=== PATIENT | male | born 1970 | race Hispanic/Latino ===

== ENCOUNTER 2017-01-13 13:34 | Inpatient (IN) | payer OTHER ==
[~2017-01-13] VITALS: Ht 167.6 cm; Wt 76.5 kg
[2017-01-13 15:20] LABS: MEAN CORPUSCULAR HEMOGLOBIN 30.4 pg (27.0-33.0); MEAN CORPUSCULAR HGB CONC 34.2 g/dl (32.0-36.5); MEAN CORPUSCULAR VOLUME 88.9 fl (80.0-96.0); RED CELL DISTRIBUTION WIDTH 12.8 % (11.5-14.5); WHITE BLOOD COUNT 5.6 K/mm3 (4.0-10.0)
[2017-01-13 15:36] LABS: METHADONE URINE NEGATIVE (NEGATIVE)
[2017-01-13 15:42] LABS: ALBUMIN/GLOBULIN RATIO 1.14 (1.00-1.93); ALKALINE PHOSPHATASE 80 U/L (45-117); ALT/SGPT 33 U/L (12-78); ANION GAP 9 MEQ/L (8-16); AST/SGOT 22 U/L (15-37); BILIRUBIN,DIRECT 0.3 MG/DL (0.0-0.2); BILIRUBIN,TOTAL 1.8 MG/DL (0.2-1.0); BLOOD UREA NITROGEN 10 MG/DL (7-18); CALCIUM LEVEL 8.9 MG/DL (8.5-10.1); CARBON DIOXIDE LEVEL 28 MEQ/L (21-32); CHLORIDE LEVEL 105 MEQ/L (98-107); CREATININE FOR GFR 0.84 MG/DL (0.70-1.30); GLOMERULAR FILTRATION RATE > 60.0 (>60); GLUCOSE, FASTING 87 MG/DL (70-105); POTASSIUM SERUM 3.9 MEQ/L (3.5-5.1); SODIUM LEVEL 142 MEQ/L (136-145); TOTAL PROTEIN 7.5 GM/DL (6.4-8.2)
[2017-01-13] MEDS ORDERED: LORazepam 1 MG TAB PO PRN (16:30)
[2017-01-13] MEDS ORDERED: MOM 30ML SUSPENSION UDC PO PRN (16:30)
[2017-01-13] MEDS ORDERED: MAALOX 30 ML SUSP *UDC PO PRN (16:30)
[2017-01-13] MEDS ORDERED: ACETAMINOPHEN TAB 650MG DOSE (2X325MG) PO PRN (16:30)
[2017-01-13 17:33] VITALS: BP 138/80
[2017-01-13] MEDS: traZODone 50 MG TAB PO PRN (21:17)
[2017-01-13] MEDS: SERTRALINE HCL 50 MG TAB PO SCH (21:17)
[2017-01-14 06:38] VITALS: BP 123/83
[2017-01-14] MEDS: SERTRALINE HCL 50 MG TAB PO SCH (08:48)
[2017-01-14 18:00] VITALS: BP 117/60
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
[2017-01-14] MEDS: traZODone 50 MG TAB PO PRN (21:49)
[2017-01-15 05:54] VITALS: BP 134/77
[2017-01-15 06:44] VITALS: BP 134/77
[2017-01-15] MEDS: SERTRALINE HCL 50 MG TAB PO SCH (09:10)
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
[2017-01-15 18:00] VITALS: BP 121/72
[2017-01-16 06:18] VITALS: BP 131/83
[2017-01-16] MEDS: SERTRALINE HCL 50 MG TAB PO SCH (08:55)
[2017-01-16 18:00] VITALS: BP 130/70
--- NOTE | 2017-01-16 20:29 | IPN ---
DATE: 01/16/2017 CHIEF COMPLAINT: Says feels okay. SUBJECTIVE: Is seen for followup. He is seen in the presence of staff, Kalli. 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 He says that went well, but that they have, in effect, ordered him to tell his about his hospitalization. He says that he plans to let her know, sometime today, possibly, but that he does not plan to tell her where he is, exactly, though says that he has spoken with her, called her. It is quite possible that she will have seen that he is in this hospital based on caller ID. He says that when he told her that even though he was away and that he did not know where he was, she had giggled and not asked him much more. He says that he does not wish her to see him as weak or that he is in a psychiatric unit. Currently suggests does not plan to kill himself when she is on vacation later in the month. Sleep was fair. We had kept him on one-on-one watch since yesterday in the evening and that remains for now, though he suggests that he does not think that it is necessary. I understand Kalli, the nurse, had spoken with [facility], who have pointed out that he has done work that is meticulous, that he has tended not to delegate things that he can, and they plan to ease some of those factors. MENTAL STATUS EXAMINATION: He is neat. He is cooperative, somewhat less guarded, though sits in bed, hunched forward, looking down a fair amount of the time at the floor, his hands clasped in front of him. Mood is okay. Affect is restricted but reactive, in congruent with mood. Appears depressed. Denies any suicidal thoughts or intents. No homicidal ideas or intents. No evidence of any psychosis. His judgment is quite questionable, as is insight. ASSESSMENT: 1. Major depressive disorder, severe, without psychotic features. The possibility of recurrent major depressive disorder also needs to be taken into consideration. 2. Rule out posttraumatic stress disorder (PTSD). The patient remains depressed, quite severely so, minimizes difficulties, guarded in his plans, and all of these factors put him at risk of harming himself. PLAN: I would suggest continuing with the one-on-one observation for now. Cognitive reframing is also attempted. We will look at increasing the sertraline to help address depressed mood, trauma related symptoms as well, probably increase it to 75 mg daily. He is encouraged to let his know about his whereabouts so that she be involved in his care as well. He is hesitant about this and this adds to the risk. I have also said that he consider informing his in our presence. He hopes to be discharged tomorrow. I do not think that he is ready for discharge, given what has been discussed above and over the weekend. He remains at considerable risk of harming himself. He will be seeing Dr. Vargas tomorrow and the rest of the team. VITAL SIGNS: Blood pressure 131/83, pulse 56, temperature 97.6.
[2017-01-16] MEDS: traZODone 50 MG TAB PO PRN (22:29)
[2017-01-17 06:54] VITALS: BP 117/61
--- NOTE | 2017-01-17 08:01 | HPE ---
DATE OF ADMISSION: 01/13/2017 HISTORY OF PRESENT ILLNESS: Please refer to the psychiatric history and evaluation for further details on this admission. This examination and history is intended for medical issues, which may need treatment, followup or consultation on this 46-year-old male. PRIMARY CARE PROVIDER: JAMEL Best. ALLERGIES: NO KNOWN ALLERGIES. 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 Ethyl alcohol (EtOH) weekends. He drinks beer and wine. Smokes none. Recreational drug use none. PAST MEDICAL HISTORY: Negative. PAST SURGICAL HISTORY: Breast lump biopsy negative for cancer. HOME MEDICATIONS: None. FAMILY HISTORY: Noncontributory. LABORATORY STUDIES: WBC 5.6, hemoglobin 14, hematocrit 41.0, platelets 255. Electrolytes normal. Total bilirubin 1.8, direct bilirubin 0.7. Toxicology screen negative. 10-systems review was done, was unremarkable. Patient had no complaints. PHYSICAL EXAMINATION: 46-year-old, cooperative male, in no acute distress. Height 66 inches. Weight 76.2. Body mass index (BMI) 27.1. Blood pressure 130/80. Pulse 52. Respirations 16. Temperature 98. Patient is alert and oriented times three. Pupils equal and reactive to light. Extraocular movements intact. Cornea and sclerae clear. Conjunctivae was normal. No facial asymmetry. Pharynx, tongue and gum is pink and moist. Tongue is midline. Neck is supple, without lymphadenopathy. No thyromegaly. No goiter. Chest clear to auscultation. No wheeze or retraction. Heart is regular. Abdomen benign. Bowel sounds positive. Genitourinary ()/rectal not done. Extremities: No cyanosis, clubbing or edema. Peripheral pulses equal and palpable bilaterally. Skin is warm and dry. Superficial laceration noted on the left wrist, no redness or drainage, slightly scabbed. IMPRESSION/PLAN: 1. Psychiatric: Plan per psychiatry. 2. Monitor laceration for infection. 3. No acute medical issues.
[2017-01-17] MEDS: SERTRALINE HCL 25 MG TABLET PO SCH (10:05)
[2017-01-17 18:00] VITALS: BP 141/61
--- NOTE | 2017-01-17 20:18 | ECGEPIP ---
Stationary ECG Study [facility] Test Date: 2017-01-17 Pat Name: OSIEL SHAH Department: Room: [place] [address] Gender: M Mouse Breeder: KAILA : 1970 Requested By: ROYCE Fang Order Number: [id number] Reading MD: Antoinette Rubin Measurements Intervals Lititz Rate: 55 P: 58 MO: 169 QRS: 27 QRSD: 86 T: 35 QT: 402 QTc: 387 Interpretive Statements SINUS BRADYCARDIA NO PRIOR Electronically Signed On 01-17-2017 20:18:14 EDT by Antoinette Rubin
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
[2017-01-17] MEDS: traZODone 50 MG TAB PO PRN (22:27)
[2017-01-18 06:30] VITALS: BP 125/78
[2017-01-18] MEDS: SERTRALINE HCL 25 MG TABLET PO SCH (09:48)
--- NOTE | 2017-01-18 13:40 | MHIPNPDOC ---
[facility] Progress Note Progress Note DATE OF SERVICE: 01/18/17 INTERVAL HISTORY: Medication Side effects: Denies Behavior: Not violent, not aggressive. Apparently less anxious. Group Attendance: Has attended groups Psychiatric Symptom change: He is still depressed, he admits to have suicidal ideation but with less frequency. Anxious. VITAL SIGNS: See below. NEW TEST RESULTS: See below CURRENT MEDICATIONS: See below. MENTAL STATUS EXAMINATION: General: Alert, cooperative with interview, poor eye contact, dressed in hospital clothes Speech: Normal Thought processes: Organized, coherent Thought content: Negative for auditory or visual hallucinations, negative for homicidal ideation, positive for suicidal ideation. Abstract reasoning, and computation: Good Description of associations: Not loose Description of abnormal or psychotic thoughts: Not present Judgment: Poor Insight: Poor Orientation: Oriented 3 Recent and remote memory: Intact Attention span and concentration: Fair Fund of knowledge: Full Mood: "I'm depressed, I still think about it (suicide), but is less" Affect: Depressed. DIAGNOSES: 1. Major depressive disorder, severe with suicidal ideation. 2. PTSD. ASSESSMENT: Patient is still at high risk for suicide. He will go for long-term treatment in [place]. He states that his suicidal ideation has decreased, but is not a major change. He is still suicidal. MANAGEMENT PLAN: Medications: Will continue on Zoloft and trazodone Psychotherapy: Will encourage him to attend groups Social: Will encourage him to interact more with peers Misc: None Disposition: Will be transferred for long-term treatment tomorrow at [facility] in [place], tomorrow morning. TIME SPENT: 30 minutes. Vital Signs Vital Signs Date Time Temp Pulse Resp B/P (MAP) Pulse Ox O2 Delivery O2 Flow Rate FiO2 01/18/17 06:30 97.9 57 18 125/78 (94) 01/15/17 05:54 Room Air 01/13/17 16:59 99 Current Medications Current Medications Acetaminophen (Tylenol Tab) 650 mg Q6HP PRN PO HEADACHE or DISCOMFORT; Start at 16:30; Stop 02/12/17 at 16:29 Al Hydrox/Mg Hydrox/Simethicone (Mylanta) 30 ml Q4HP PRN PO HEARTBURN/ INDIGESTION; Start 01/13/17 at 16:30; Stop 02/12/17 at 16:29 Home Med (Med Rec Complete!) ASDIRECTED XX ; Start 01/13/17 at 16:30; Stop at 16:31; Status DC Lorazepam (Ativan) 1 mg Q8HP PRN PO ANXIETY/AGITATION; Start 01/13/17 at 16:30; Stop 01/20/17 at 16:29 Magnesium Hydroxide (Milk Of Magnesia) 30 ml DAILYPRN PRN PO CONSTIPATION; Start 01/13/17 at 16:30; Stop 02/12/17 at 16:29 Sertraline HCl (Zoloft) 50 mg DAILY PO Last administered on 01/16/17 08:55; Start 01/13/17 at 09:00; Stop 01/16/17 at 14:45; Status DC Sertraline HCl (Zoloft) 75 mg DAILY PO Last administered on 01/18/17 09:48; Start 01/17/17 at 09:00; Stop 02/16/17 at 08:59 Trazodone HCl (Desyrel) 50 mg QHSP PRN PO INSOMNIA Last administered on 22:27; Start 01/13/17 at 16:30; Stop 02/12/17 at 16:29 Allergies Coded Allergies: No Known Allergies (Unverified , 01/13/17) ROYCE DALE MD January 18, 2017 13:40
[2017-01-18 18:26] VITALS: BP 131/77
[2017-01-18] MEDS: traZODone 50 MG TAB PO PRN (22:47)
[2017-01-19 06:07] VITALS: BP 133/79
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
== END 2017-01-19 06:20 | disposition home or self-care (01) | DRG 885 ==
LOC: M ED 14:39 → M ED INP 16:28 → M PSY 17:27
PROVIDERS: ADMIT Psychiatry & Neurology Psychiatry; ATTEND Psychiatry & Neurology Psychiatry
DX: F32.2 Major depressive disorder, single episode, severe without psychotic features (principal); Z62.810 Personal history of physical and sexual abuse in childhood; F60.3 Borderline personality disorder; Z81.8 Family history of other mental and behavioral disorders; F43.10 Post-traumatic stress disorder, unspecified; Z91.5 Personal history of self-harm

== ENCOUNTER 2017-04-29 16:07 | Inpatient (IN) | payer OTHER ==
[~2017-04-29] VITALS: Ht 170.2 cm; Wt 78.9 kg
[2017-04-29] MEDS ORDERED: ZOLO50TA PO (16:17)
[2017-04-29 17:12] LABS: MEAN CORPUSCULAR HEMOGLOBIN 31.3 pg (27.0-33.0); MEAN CORPUSCULAR HGB CONC 35.2 g/dl (32.0-36.5); MEAN CORPUSCULAR VOLUME 89.1 fl (80.0-96.0); WHITE BLOOD COUNT 7.6 K/mm3 (4.0-10.0)
[2017-04-29 17:42] LABS: ALBUMIN 4.1 GM/DL (3.2-5.2); ALBUMIN/GLOBULIN RATIO 1.28 (1.00-1.93); ALKALINE PHOSPHATASE 96 U/L (45-117); ALT/SGPT 31 U/L (12-78); ANION GAP 12 MEQ/L (8-16); AST/SGOT 25 U/L (15-37); BILIRUBIN,DIRECT 0.2 MG/DL (0.0-0.2); BILIRUBIN,TOTAL 0.9 MG/DL (0.2-1.0); BLOOD UREA NITROGEN 14 MG/DL (7-18); CALCIUM LEVEL 8.5 MG/DL (8.5-10.1); CARBON DIOXIDE LEVEL 23 MEQ/L (21-32); CHLORIDE LEVEL 107 MEQ/L (98-107); CREATININE FOR GFR 1.05 MG/DL (0.70-1.30); GLOMERULAR FILTRATION RATE > 60.0 (>60); GLUCOSE, FASTING 120 MG/DL (70-105); SODIUM LEVEL 142 MEQ/L (136-145); TOTAL PROTEIN 7.3 GM/DL (6.4-8.2)
[2017-04-29 18:18] LABS: METHADONE URINE NEGATIVE (NEGATIVE)
[2017-04-29] MEDS ORDERED: FISH1000 PO (18:58)
[2017-04-29] MEDS ORDERED: PATIENT COMMENT (18:58)
[2017-04-29] MEDS ORDERED: COLA100C5 PO (18:58)
[2017-04-29] MEDS ORDERED: LORazepam 1 MG TAB PO ONE (22:45)
[2017-04-30 00:10] VITALS: BP 142/90
[2017-04-30] MEDS ORDERED: MAALOX 30 ML SUSP *UDC PO PRN (00:15)
[2017-04-30] MEDS ORDERED: ACETAMINOPHEN TAB 650MG DOSE (2X325MG) PO PRN (00:15)
[2017-04-30] MEDS ORDERED: MOM 30ML SUSPENSION UDC PO PRN (00:15)
[2017-04-30 06:39] VITALS: BP 146/86
[2017-04-30 12:00] VITALS: BP 136/82
[2017-04-30 18:00] VITALS: BP 128/98
[2017-04-30] MEDS: traZODone 50 MG TAB PO PRN (21:03)
[2017-05-01 06:52] VITALS: BP 130/88
[2017-05-01] MEDS: SERTRALINE HCL 50 MG TAB PO SCH (13:33)
[2017-05-01 18:00] VITALS: BP 144/87
[2017-05-01] MEDS: traZODone 50 MG TAB PO PRN (21:56)
[2017-05-02 06:29] VITALS: BP 125/72
[2017-05-02] MEDS ORDERED: TRAZ-136 PO (09:08)
[2017-05-02] MEDS ORDERED: SERT-138 PO (09:08)
[2017-05-02] MEDS ORDERED: MIRT1TAB PO (09:08)
[2017-05-02] MEDS: SERTRALINE HCL 50 MG TAB PO SCH (09:19)
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
--- NOTE | 2017-05-02 11:40 | MHIPN ---
DATE: 05/01/2017 CHIEF COMPLAINT: Feels okay. SUBJECTIVE: Seen for followup in the presence of staff. Says feels okay, that he had a good night, moods are good. Says he contacted his to find about the medicines, but that she was unable to tell him, as she was out with friends. He said he will try and contact today, thinks she will be at [employer]. MENTAL STATUS EXAMINATION: He is sitting up in bed. He is neat. He is cooperative, though somewhat superficially so. He is coherent. No agitation. No psychomotor retardation. Affect broad. Denies any thoughts of harming himself or anyone else. No evidence of any psychosis. Cognition grossly intact. His judgment, insight are questionable. ASSESSMENT: Major depressive disorder. PLAN: Continue current care and observations, and since he has been off Zoloft for a couple of days, and we do not know the exact dose that he is on, neither does he, we will prescribe him Zoloft at 50 mg daily, it will adjusted once we find out from his , or from the pharmacy tomorrow, the correct dose. The other medications that he is on, he is thought to be on prazosin as well, will be resumed. He is to encourage to participate in activities on the unit. He tends to minimize his difficulties. VITAL SIGNS: Blood pressure 130/88, pulse 64, temperature 97.8. He will be meeting his assigned psychiatrist and the rest of the treatment team tomorrow. MISTI
--- NOTE | 2017-05-02 13:18 | HPE ---
DATE OF ADMISSION: 04/29/2018 HISTORY OF PRESENT ILLNESS (HPI): Please refer to the psychiatric history and evaluation for further details on this admission. This examination and history is intended for medical issues, which may need treatment, followup or consultation on this 47-year-old male. PRIMARY CARE PROVIDER: JAMEL Best, ALLERGIES: NO KNOWN ALLERGIES. SOCIAL HISTORY: He is a , currently stationed at [employer]. Ethyl alcohol (EtOH): He drinks beer on the weekends, but he states he has had none for a week. He does not smoke cigarettes. Recreational drug use: None. PAST MEDICAL HISTORY: 1. Depression. 2. Hyperlipidemia. PAST SURGICAL HISTORY: Breast lump biopsy negative for cancer. HOME MEDICATIONS: - Colace 100 mg by mouth twice a day - fish oil 1000 mg by mouth daily - sertraline (He does not remember the dosage, that will need to be checked at [facility] when they open on Tuesday.) FAMILY HISTORY: Noncontributory. LABORATORY STUDIES: WBC 7.6, hemoglobin 13.5, hematocrit 38.5, platelets 266. Electrolytes were normal. Toxicology was negative. 10 systems review was done. It was unremarkable. Patient had no complaints. PHYSICAL EXAMINATION: 47-year-old, cooperative male, in no acute distress. Height 67 inches. Weight 84 kg. Body mass index (BMI) 29.0. Blood pressure (BP) 136/82. Pulse 65. Respirations 16. Temperature 98.5. Pupils equal and react to light. Extraocular movements (EOM intact). Cornea and sclera clear. Conjunctiva is normal. No facial asymmetry. Pharynx, tongue and gum is pink and moist. Tongue is midline. Neck is supple, without lymphadenopathy. No thyromegaly. No goiter. Carotids 2+, without bruit. Chest clear to auscultation, without wheeze or retraction. Heart is regular. Abdomen benign. Bowel sounds positive. Genitourinary ()/rectal not done. Extremities show equal strength, full range of motion. No cyanosis, clubbing or edema. Peripheral pulses equal and palpable bilaterally. Skin is warm and dry. IMPRESSION AND PLAN: 1. Psychiatric plan per psychiatry. 2. No acute medical issues.
[2017-05-02 18:00] VITALS: BP 151/82
[2017-05-02] MEDS: traZODone 50 MG TAB PO PRN (21:24)
[2017-05-03 07:26] VITALS: BP 140/86
[2017-05-03] MEDS: risperiDONE 1 MG TAB PO SCH ×2 (09:00→20:58)
[2017-05-03] MEDS: SERTRALINE HCL 50 MG TAB PO SCH (09:16)
[2017-05-03 18:00] VITALS: BP 148/82
[2017-05-03] MEDS: PRAZOSIN 1 MG CAP PO SCH (20:59)
[2017-05-03] MEDS ORDERED: MIRTAZAPINE 15 MG TAB PO SCH (21:00)
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
[2017-05-04 06:56] VITALS: BP 147/87
[2017-05-04] MEDS: risperiDONE 1 MG TAB PO SCH ×3 (08:47→21:37)
[2017-05-04] MEDS ORDERED: SERTRALINE HCL 25 MG TABLET PO SCH (09:00)
[2017-05-04] MEDS ORDERED: IBUPROFEN 800 MG TAB PO PRN (09:30)
[2017-05-04] MEDS ORDERED: LORazepam 1 MG TAB PO PRN (12:30)
[2017-05-04] MEDS ORDERED: APAP325T4 PO (14:25)
[2017-05-04] MEDS ORDERED: IBUP200C10 PO (14:25)
[2017-05-04] MEDS ORDERED: OMEP20CA3 PO (14:25)
[2017-05-04] MEDS ORDERED: CYPR4TA OR (14:28)
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
[2017-05-04] MEDS: LORazepam 1 MG TAB PO SCH ×2 (17:23→21:37)
[2017-05-04 18:00] VITALS: BP 143/71
[2017-05-04] MEDS: MIRTAZAPINE 15 MG TAB PO SCH (21:37)
[2017-05-04] MEDS: PRAZOSIN 1 MG CAP PO SCH (21:39)
[2017-05-05 06:13] VITALS: BP 154/87
[2017-05-05] MEDS: SERTRALINE HCL 50 MG TAB PO SCH (08:38)
[2017-05-05] MEDS: risperiDONE 1 MG TAB PO SCH ×3 (08:38→21:33)
[2017-05-05] MEDS: LORazepam 1 MG TAB PO SCH ×3 (08:38→21:33)
[2017-05-05] MEDS ORDERED: SERTRALINE 100 MG TAB PO SCH (09:00)
[2017-05-05 18:00] VITALS: BP 150/90
--- NOTE | 2017-05-05 18:19 | MHIPN ---
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 SUBJECTIVE: The patient reports feeling angry at himself, frustrated, sad, anxious, ashamed and embarrassed. He says he is extremely afraid of facing his , his children, his mother, his peers in the , his in-laws. He says he will have to apologize to his in-laws. He believes he owes them that and then he says, "I know that I don't have to, but then I have to, you understand." He asked several times when is he going to be discharged, he says he is going to consult a leather leveler once he leaves the inpatient mental health unit because he really does not know what is going on with his case, he does not know how to take it, how to approach it, how to process it because he never had problems before. OBJECTIVE: The patient is alert, oriented times three, dressed in hospital clothes with good eye contact, good rapport. His speech is spontaneous and fluid, with normal volume and rate, thought process is intact and thought content is anxious. He denies auditory or visual hallucinations, denies thought delusions and denies suicidal and homicidal ideation. His insight and judgment are slowly improving, his memory is intact, his attention and concentration are fair. ASSESSMENT: Patient is at high risk for suicide-homicide. He said their life has collapsed, according to him, because he really valued his career. He feels hopeless, helpless and worthless. He says he does not know what he is going to do, how is he going to be able to support his two children once he is out of the [employer]. 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 The patient does not know his wants to leave him, and she is making the arrangements to do that. The patient will be kept at the inpatient mental health unit until she leaves. According to major case detective who has spoken to patient's , this lady is scared of him and wants to leave the state. The patient continues to be at high risk.
[2017-05-05] MEDS: EXCEDRIN MIGRAINE TABLET PO PRN (18:22)
[2017-05-05] MEDS: MIRTAZAPINE 15 MG TAB PO SCH (21:33)
[2017-05-05] MEDS: PRAZOSIN 1 MG CAP PO SCH (21:33)
[2017-05-06 06:43] VITALS: BP 163/91
[2017-05-06] MEDS: LORazepam 1 MG TAB PO SCH ×3 (08:47→21:26)
[2017-05-06] MEDS: risperiDONE 1 MG TAB PO SCH ×3 (08:47→21:26)
[2017-05-06] MEDS: SERTRALINE HCL 50 MG TAB PO SCH (08:47)
[2017-05-06] MEDS: EXCEDRIN MIGRAINE TABLET PO PRN (11:57)
--- NOTE | 2017-05-06 16:19 | MHIPNPDOC ---
[facility] Progress Note Progress Note DATE OF SERVICE: 05/06/17 INTERVAL HISTORY: Medication Side effects: Denies medication side effects, says he is feeling less anxious, has slept better and is less depressed. Behavior: He has not had behavioral problems at the inpatient mental health unit. Staff has seen him pacing up and down the hallways, worried but that activity has decreased in the last 24 hours. Group Attendance: Has been attending groups Psychiatric Symptom change: Slightly more calm, a little less depressed VITAL SIGNS: See below. NEW TEST RESULTS: See below CURRENT MEDICATIONS: See below. MENTAL STATUS EXAMINATION: General: Alert, oriented 3, cooperative with interview, with good eye contact Speech: Spontaneous and fluid Thought processes: Intact Thought content: Coherent and goal directed Abstract reasoning, and computation: Fair Description of associations: Good Description of abnormal or psychotic thoughts: Denies auditory and visual hallucinations, denies thought delusions, denies homicidal ideation but hesitates answering if he is suicidal or not. He says he tries not to think about that, he is blocking suicidal ideation, by trying to keep a positive mind. Judgment: Slightly improving Insight: Limited Orientation: Oriented 3 Recent and remote memory: Intact Attention span and concentration: Good Fund of knowledge: Fair Mood: Anxious/depressed Affect: Congruent to mood, but both, mood and affect have had a little improvement DIAGNOSES: 1. Major depressive disorder, recurrent, severe ASSESSMENT: Patient could be going to [facility] on Tuesday or Tuesday. 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 Patient is agreeable to treatment, he says it will make him a better man, he wants to be a better , a better father and that her son. He doesn't talk much about his and children, his main concern is his career and his mother. Patient doesn't know his wants to leave him, it will make things worse for him, he is very concerned about not having a job, because he wouldn't be able to support his children, but he doesn't express concerns about his children's safety or about his children's feelings with all this ordeal, although he has expressed feeling embarrassed, shameful, fearful and angry at himself for what he did. He says his been resorting to read the Bible and that has come for get him. He says he has gotten away from God because he was to be seen with worldly issues like taking care of his job, but now he has turned out to God and he gets responses by reading the Bible. He understands he is being punished for his past actions and he understands that God is some merciful God will forgive him. 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 MANAGEMENT PLAN: We'll continue the same medications, possible transfer to [facility] on Tuesday or Tuesday, May 09 or . TIME SPENT: 30 minutes. Vital Signs Vital Signs Date Time Temp Pulse Resp B/P (MAP) Pulse Ox O2 Delivery O2 Flow Rate FiO2 05/06/17 06:43 97.5 68 16 163/91 (115) Room Air Current Medications Current Medications Acetaminophen (Tylenol Tab) 650 mg Q6HP PRN PO HEADACHE or DISCOMFORT Last administered on 05/04/17 08:47; Start 04/30/17 at 00:15; Stop 05/30/17 at 00:14 Acetaminophen/ Aspirin/Caffeine (Excedrin Migraine) 1 ea Q4HP PRN PO HEADACHE Last administered on 05/06/17 11:57; Start 05/03/17 at 18:00; Stop 06/02/17 at 17:59 Al Hydrox/Mg Hydrox/Simethicone (Mylanta) 30 ml Q4HP PRN PO HEARTBURN/ INDIGESTION; Start 04/30/17 at 00:15; Stop 05/30/17 at 00:14 Home Med (Med Rec Complete!) ASDIRECTED XX ; Start 04/29/17 at 19:00; Stop at 19:01; Status DC Ibuprofen (Advil) 800 mg Q8HP PRN PO MODERATE PAIN (PS 5-7); Start 05/04/17 at 09:30; Stop 06/03/17 at 09:29 Lorazepam (Ativan) 1 mg TID PO Last administered on 05/06/17 08:47; Start at 16:00; Stop 05/11/17 at 15:59 Lorazepam (Ativan) 1 mg TID PRN PO ANXIETY; Start 05/04/17 at 12:30; Stop 05/04 at 17:02; Status DC Magnesium Hydroxide (Milk Of Magnesia) 30 ml DAILYPRN PRN PO CONSTIPATION; Start 04/30/17 at 00:15; Stop 05/30/17 at 00:14 Mirtazapine (Remeron) 30 mg QHS PO Last administered on 05/03/17 20:58; Start 05/03/17 at 21:00; Stop 05/04/17 at 12:19; Status DC Mirtazapine (Remeron) 45 mg QHS PO Last administered on 05/05/17 21:33; Start 05/04/17 at 21:00; Stop 06/03/17 at 20:59 Prazosin HCl (Minipress) 2 mg QHS PO Last administered on 05/05/17 21:33; Start 05/03/17 at 21:00; Stop 06/02/17 at 20:59 Risperidone (RisperDAL) 1 mg BID PO Last administered on 05/04/17 08:47; Start 05/03/17 at 09:00; Stop 05/04/17 at 12:35; Status DC Risperidone (RisperDAL) 1 mg TID PO Last administered on 05/06/17 08:47; Start 05/04/17 at 16:00; Stop 06/02/17 at 08:59 Sertraline HCl (Zoloft) 50 mg DAILY PO Last administered on 05/03/17 09:16; Start 05/01/17 at 09:00; Stop 05/03/17 at 12:53; Status DC Sertraline HCl (Zoloft) 75 mg DAILY PO Last administered on 05/04/17 08:49; Start 05/04/17 at 09:00; Stop 05/04/17 at 12:19; Status DC Sertraline HCl (Zoloft) 100 mg DAILY PO ; Start 05/05/17 at 09:00; Stop at 09:00; Status DC Sertraline HCl (Zoloft) 150 mg DAILY PO Last administered on 05/06/17 08:47; Start 05/05/17 at 09:00; Stop 06/04/17 at 08:59 Trazodone HCl (Desyrel) 50 mg QHSP PRN PO INSOMNIA Last administered on 21:24; Start 04/30/17 at 00:15; Stop 05/03/17 at 12:57; Status DC Allergies Coded Allergies: No Known Allergies (Unverified , 01/13/17) ROYCE DALE MD May 06, 2017 16:19
--- NOTE | 2017-05-06 17:30 | MHIPN ---
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 Major depressive disorder, severe, recurrent. SUBJECTIVE: Patient reports feeling better, has slept better, continues to be anxious and depressed, but his thoughts are getting a little bit more clear. He still rates his depression and anxiety levels on a 6 or 7 out of 10 scale. He says he is willing to go to [facility] for longer treatment, he has been talking to his , he denies suicidal ideation and homicidal ideation. OBJECTIVE: Patient is alert, oriented times three, dressed in hospital clothes, cooperative with the interview. He looks less anxious and depressed than yesterday and the day before yesterday. His speech is spontaneous and fluent. His thought process is intact, his thought content is coherent. He denies auditory or visual hallucinations, denies thought delusions and denies suicidal and homicidal ideation. His insight and judgment are still limited, his memory is intact. His attention and concentration are fair. ASSESSMENT: The patient is responding to medication adjustments. He is willing to go to [facility], which is good for him and for his family, has continued talking to his . At times, the patient seems to have gained some insight and not to have gained some insight, but he is manipulative and he could be saying things that will favor him in his ordeal. Going to [facility] will be helpful for him, he will continue to be in therapy and probably is the best thing for him to happen while he is going through these legal problems. 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
[2017-05-06 18:00] VITALS: BP 162/89
[2017-05-06] MEDS: MIRTAZAPINE 15 MG TAB PO SCH (21:26)
[2017-05-06] MEDS: PRAZOSIN 1 MG CAP PO SCH (21:26)
[2017-05-07 06:00] VITALS: BP 116/64
[2017-05-07] MEDS: risperiDONE 1 MG TAB PO SCH ×3 (08:13→21:19)
[2017-05-07] MEDS: LORazepam 1 MG TAB PO SCH ×3 (08:13→21:19)
[2017-05-07] MEDS: SERTRALINE HCL 50 MG TAB PO SCH (08:14)
[2017-05-07] MEDS: DOCUSATE SODIUM 100 MG CAP PO SCH ×2 (12:06→21:19)
[2017-05-07 18:00] VITALS: BP 134/80
[2017-05-07] MEDS: PRAZOSIN 1 MG CAP PO SCH (21:19)
[2017-05-07] MEDS: MIRTAZAPINE 15 MG TAB PO SCH (21:40)
[2017-05-08 06:35] VITALS: BP 123/60
[2017-05-08] MEDS: risperiDONE 1 MG TAB PO SCH ×3 (10:17→21:59)
[2017-05-08] MEDS: DOCUSATE SODIUM 100 MG CAP PO SCH ×2 (10:17→21:59)
[2017-05-08] MEDS: LORazepam 1 MG TAB PO SCH ×3 (10:17→21:59)
[2017-05-08] MEDS: SERTRALINE HCL 50 MG TAB PO SCH (10:18)
[2017-05-08 18:00] VITALS: BP 135/88
[2017-05-08] MEDS: MIRTAZAPINE 15 MG TAB PO SCH (21:59)
[2017-05-08] MEDS: PRAZOSIN 1 MG CAP PO SCH (21:59)
[2017-05-09 06:00] VITALS: BP 132/58
[2017-05-09] MEDS: SERTRALINE HCL 50 MG TAB PO SCH (08:13)
[2017-05-09] MEDS: DOCUSATE SODIUM 100 MG CAP PO SCH ×2 (08:13→21:08)
[2017-05-09] MEDS: LORazepam 1 MG TAB PO SCH ×2 (08:13→16:00)
[2017-05-09] MEDS: risperiDONE 1 MG TAB PO SCH ×2 (08:13→16:00)
[2017-05-09] MEDS ORDERED: IBUP80TA PO (08:39)
[2017-05-09] MEDS ORDERED: SERT50TA PO (08:39)
[2017-05-09] MEDS ORDERED: RISP1TAB42 PO (08:39)
[2017-05-09] MEDS ORDERED: MIRT15TA3 PO (08:39)
[2017-05-09] MEDS ORDERED: MINI1CAP PO (08:39)
[2017-05-09 12:47] VITALS: BP 120/65
[2017-05-09] MEDS: OMEGA-3 1050MG CAPSULE PO SCH ×2 (13:58→21:08)
--- NOTE | 2017-05-09 15:33 | MHIPNPDOC ---
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 Major depressive disorder, severe, recurrent. SUBJECTIVE: Patient reports feeling a little bit tired today, was tossing and turning last night, couldn't sleep well. He says his feeling all right, he is ready to go to [facility] tomorrow in the morning. He states "I'm doing better , I just need to rest a little bit". OBJECTIVE: Patient is alert, oriented times three, dressed in hospital clothes , laying in bed, curled in a position, sleeping . He has to be awakened. He was cooperative with the interview. He he is less anxious but continues to be depressed. His speech is spontaneous and fluent. His thought process is intact, his thought content is coherent. He denies auditory or visual hallucinations, denies thought delusions and denies suicidal and homicidal ideation. His insight and judgment are slowly improving, his memory is intact. His attention and concentration are fair. ASSESSMENT: Patient seems to be accepting his situation but he is depressed. He has had a good response to medications and he is calmer now, but he will need to continue with treatment for a long time. PLAN: Patient is going to [facility] tomorrow. He has agreed to it and he believes his situation can improve is he does the right thing. He will be discharged to his [facility] tomorrow. TIME SPENT: 15 minutes. Vital Signs Vital Signs Date Time Temp Pulse Resp B/P (MAP) Pulse Ox O2 Delivery O2 Flow Rate FiO2 05/09/17 06:00 98.4 50 20 132/58 (82) Room Air Current Medications Current Medications Acetaminophen (Tylenol Tab) 650 mg Q6HP PRN PO HEADACHE or DISCOMFORT Last administered on 05/04/17 08:47; Start 04/30/17 at 00:15; Stop 05/30/17 at 00:14 Acetaminophen/ Aspirin/Caffeine (Excedrin Migraine) 1 ea Q4HP PRN PO HEADACHE Last administered on 05/06/17 11:57; Start 05/03/17 at 18:00; Stop 06/02/17 at 17:59 Al Hydrox/Mg Hydrox/Simethicone (Mylanta) 30 ml Q4HP PRN PO HEARTBURN/ INDIGESTION; Start 04/30/17 at 00:15; Stop 05/30/17 at 00:14 Docusate Sodium (Colace) 100 mg BID PO Last administered on 05/09/17 08:13; Start 05/07/17 at 09:00; Stop 06/06/17 at 08:59 Fish Oil ([place]-3 (1050mg)) 1 ea BID PO Last administered on 05/09/17 13:58; Start 05/09/17 at 09:00; Stop 06/08/17 at 08:59 Home Med (Med Rec Complete!) ASDIRECTED XX ; Start 04/29/17 at 19:00; Stop at 19:01; Status DC Ibuprofen (Advil) 800 mg Q8HP PRN PO MODERATE PAIN (PS 5-7); Start 05/04/17 at 09:30; Stop 06/03/17 at 09:29 Lorazepam (Ativan) 1 mg TID PO Last administered on 05/09/17 08:13; Start at 16:00; Stop 05/11/17 at 15:59 Lorazepam (Ativan) 1 mg TID PRN PO ANXIETY; Start 05/04/17 at 12:30; Stop 05/04 at 17:02; Status DC Magnesium Hydroxide (Milk Of Magnesia) 30 ml DAILYPRN PRN PO CONSTIPATION Last administered on 05/07/17 10:40; Start 04/30/17 at 00:15; Stop 05/30/17 at 00:14 Mirtazapine (Remeron) 30 mg QHS PO Last administered on 05/03/17 20:58; Start 05/03/17 at 21:00; Stop 05/04/17 at 12:19; Status DC Mirtazapine (Remeron) 45 mg QHS PO Last administered on 05/08/17 21:59; Start 05/04/17 at 21:00; Stop 06/03/17 at 20:59 Prazosin HCl (Minipress) 2 mg QHS PO Last administered on 05/08/17 21:59; Start 05/03/17 at 21:00; Stop 06/02/17 at 20:59 Risperidone (RisperDAL) 1 mg BID PO Last administered on 8/23/17at 08:47; Start 05/03/17 at 09:00; Stop 05/04/17 at 12:35; Status DC Risperidone (RisperDAL) 1 mg TID PO Last administered on 05/09/17 08:13; Start 05/04/17 at 16:00; Stop 06/02/17 at 08:59 Sertraline HCl (Zoloft) 50 mg DAILY PO Last administered on 05/03/17 09:16; Start 05/01/17 at 09:00; Stop 05/03/17 at 12:53; Status DC Sertraline HCl (Zoloft) 75 mg DAILY PO Last administered on 05/04/17 08:49; Start 05/04/17 at 09:00; Stop 05/04/17 at 12:19; Status DC Sertraline HCl (Zoloft) 100 mg DAILY PO ; Start 05/05/17 at 09:00; Stop at 09:00; Status DC Sertraline HCl (Zoloft) 150 mg DAILY PO Last administered on 05/09/17 08:13; Start 05/05/17 at 09:00; Stop 06/04/17 at 08:59 Trazodone HCl (Desyrel) 50 mg QHSP PRN PO INSOMNIA Last administered on 21:24; Start 04/30/17 at 00:15; Stop 05/03/17 at 12:57; Status DC Allergies Coded Allergies: No Known Allergies (Unverified , 01/13/17) ROYCE DALE MD May 09, 2017 15:33
[2017-05-09 18:00] VITALS: BP 116/66
[2017-05-09] MEDS: MIRTAZAPINE 15 MG TAB PO SCH (20:20)
[2017-05-09] MEDS ORDERED: risperiDONE 1 MG TAB PO SCH (21:00)
[2017-05-09] MEDS ORDERED: LORazepam 1 MG TAB PO SCH (21:00)
[2017-05-09 21:09] VITALS: BP 124/70
[2017-05-09] MEDS: PRAZOSIN 1 MG CAP PO SCH (21:09)
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
== END 2017-05-10 01:55 | DRG 885 ==
LOC: M ED 16:07 → M ED INP 19:48 → M PSY 23:25
PROVIDERS: ADMIT Psychiatry & Neurology Psychiatry; ATTEND Psychiatry & Neurology Psychiatry
DX: F33.2 Major depressive disorder, recurrent severe without psychotic features (principal); F43.10 Post-traumatic stress disorder, unspecified; Z79.899 Other long term (current) drug therapy; E78.5 Hyperlipidemia, unspecified

== ENCOUNTER → 2017-11-03 | Outpatient (CLI) | payer OTHER ==
[~2017-11-03] MED LIST: PROHANCE 279.3MG/ML 15ML VIAL (A9576) As Ordered; PROHANCE 279.3MG/ML 5ML VIAL (A9576) As Ordered
== END ==
LOC: M RAD 11:40
DX: N28.1 Cyst of kidney, acquired (principal); D18.09 Hemangioma of other sites
CPT/HCPCS: A9576